=== PATIENT | female | born 1985 | race Caucasian/White ===

== ENCOUNTER 2019-03-23 05:38 | Day surgery (SDC) | payer OTHER ==
[2019-03-23 06:28] LABS: ADD MAN DIFF? NO
[2019-03-23] MEDS: ACETAMINOPHEN 500 MG TAB PO (06:33)
[2019-03-23] MEDS: LACTATED RINGER'S 1,000 ML IV (06:33)
[2019-03-23 06:39] LABS: WHITE BLOOD COUNT 7.9 10^3/ul (4.8-10.8)
[2019-03-23 06:39] LABS: BASOPHIL # 0.1 10^3/ul (0.0-0.1); BASOPHILS % 0.9 % (0.0-2.0); EOSINOPHILS # 0.1 10^3/ul (0.0-0.5); EOSINOPHILS % 1.5 % (0.0-7.0); HEMOGLOBIN 10.3 g/dl (12.0-16.0); LYMPHOCYTES # 2.1 10^3/ul (0.8-2.9); LYMPHOCYTES % 27.1 % (15.0-51.0); MEAN CORPUSCULAR HEMOGLOBIN 24.5 pg (29.0-33.0); MEAN CORPUSCULAR HGB CONC 30.3 g/dl (32.0-37.0); MEAN CORPUSCULAR VOLUME 80.8 fl (82.0-101.0); MEAN PLATELET VOLUME 10.5 fl (7.4-10.4); MONOCYTE # 0.7 10^3/ul (0.3-0.9); MONOCYTES % 8.4 % (0.0-11.0); NEUTROPHIL # 4.9 10^3/ul (1.6-7.5); NEUTROPHILS % 61.8 % (39.0-77.0); PLATELET COUNT 334 10^3/UL (140-415); RED BLOOD COUNT 4.21 10^6/ul (4.20-5.40); RED CELL DISTRIBUTION WIDTH 18.5 % (11.5-14.5)
[2019-03-23] MEDS ORDERED: LIDOCAINE 2% (SDV) 5 ML INJ (07:24)
[2019-03-23] MEDS ORDERED: MIDAZOLAM 1 MG/ML 2 ML INJ (07:24)
[2019-03-23] MEDS ORDERED: FENTAnyl 50 MCG/ML VIAL (07:24)
[2019-03-23] MEDS ORDERED: FAMOTIDINE 20 MG INJ (07:24)
[2019-03-23] MEDS ORDERED: PROPOFOL 200 MG INJ (07:24)
[2019-03-23] MEDS ORDERED: CEFAZOLIN 1 GM INJ (07:24)
[2019-03-23] MEDS ORDERED: ONDANSETRON 4 MG INJ (07:25)
[2019-03-23] MEDS ORDERED: KETOROLAC 30 MG INJ (07:25)
[2019-03-23] MEDS ORDERED: EPHEDrine 25 MG/5 ML SYG IV (07:30)
[2019-03-23] MEDS ORDERED: LABETALOL HCL 20MG INJ IV (07:30)
[2019-03-23] MEDS ORDERED: HYDROmorphONE 1 MG/5 ML IV SYRINGE IV ×3 (07:30)
[2019-03-23] MEDS ORDERED: ALBUTEROL 0.083% (NEB) 2.5 MG/3 ML AMP HHN (07:30)
[2019-03-23] MEDS ORDERED: FENTAnyl 50 MCG/ML VIAL IV ×2 (07:30)
[2019-03-23] MEDS ORDERED: OXYCODONE/ACETAMINOPHEN (5/325) TAB PO ×2 (07:30)
[2019-03-23] MEDS ORDERED: hydrALAzine 20 MG INJ IV (07:30)
[2019-03-23] MEDS ORDERED: MEPERIDINE 25 MG INJ IV (07:30)
[2019-03-23] MEDS ORDERED: DIPHENHYDRAMINE 50 MG INJ IV (07:30)
[2019-03-23] MEDS ORDERED: ONDANSETRON 4 MG INJ IV (07:30)
[2019-03-23] MEDS ORDERED: morphine 2 MG INJ IV ×2 (07:30)
[2019-03-23] MEDS ORDERED: DEXAMETHASONE 4 MG/ML 5 ML INJ (07:52)
== END 2019-03-23 10:07 | disposition home or self-care (01) ==
LOC: SDS 05:38
DX: N93.8 Other specified abnormal uterine and vaginal bleeding (principal); D64.9 Anemia, unspecified; E66.9 Obesity, unspecified
CPT/HCPCS: 58558; 84703; 85025; 86850; 86900; 86901; 88305